=== PATIENT | female | born 1970 | race Caucasian/White ===

== ENCOUNTER → 2017-01-25 | Outpatient (CLI) | payer OTHER ==
--- NOTE | 2017-01-25 16:00 | RAD ---
Thyroid ultrasound, 01/25/2017: History: Thyromegaly The right lobe of the gland measures 5.0 x 1.7 x 1.7 cm, while the left lobe of the gland measures 5.1 x 1.7 x 1.5 cm. There are multiple bilateral thyroid nodules. The largest nodule lies in the midportion of the left lobe of the gland and measures 1.3 cm. It has smooth margins. It is a predominantly solid nodule with internal color flow. It is wider than tall. A slightly smaller nodule with similar sonographic characteristics is present in the upper pole of the left lobe of the gland. There is a 7 mm nodule with similar characteristics in the upper pole of the right lobe of the gland. A smaller 4 mm nodule with similar characteristics is present medially in the right lobe of the gland. There are couple of tiny cysts in the lower pole of the right lobe of the gland. No thyroid calcifications or highly suspicious findings are delineated. IMPRESSION: Multinodular thyroid gland as described above. The sonographic characteristics of these individual nodules are nonspecific. Sonographic follow-up is suggested.
== END | disposition home or self-care (01) ==
LOC: US 14:52
PROVIDERS: ATTEND Nurse Practitioner Family
DX: E04.2 Nontoxic multinodular goiter (principal)
CPT/HCPCS: 76536